=== PATIENT | female | born 1980 | race Two or more races ===

== ENCOUNTER 2020-10-05 08:52 | Outpatient (CLI) | payer OTHER | END 2020-10-05 23:59 | disposition home or self-care (01) | LOC: LAB 08:52 | PROVIDERS: ATTEND Specialist | DX: Z01.812 Encounter for preprocedural laboratory examination (principal); Z20.822 Contact with and (suspected) exposure to COVID-19 | CPT/HCPCS: C9803; U0003 ==

== ENCOUNTER 2020-10-10 05:33 | Day surgery (SDC) | payer OTHER ==
[~2020-10-10 05:33] MED LIST: ANESTHESIA TRAY IN PYXIS 1 EA TRAY MC ONE
[2020-10-10] MEDS ORDERED: methylPREDNISolone ACETATE 80 MG/ML VIAL ONE (05:42)
[2020-10-10] MEDS ORDERED: BUPIVACAINE 0.5 % PF 150 MG/30 ML VIAL ONE (05:42)
[2020-10-10] MEDS ORDERED: FENTANYL PF 100MCG/2ML AMPUL ONE ×2 (06:20→08:18)
[2020-10-10] MEDS ORDERED: SUCCINYLCHOLINE CHLORIDE 20 MG/ML VIAL ONE (06:20)
[2020-10-10] MEDS ORDERED: ROCURONIUM BROMIDE 50 MG/5 ML ONE (06:20)
[2020-10-10] MEDS ORDERED: MIDAZOLAM HCL 2 MG/2ML VIAL ONE (06:20)
== END 2020-10-10 09:50 | disposition home or self-care (01) ==
LOC: DS 05:33
PROVIDERS: ATTEND Specialist
DX: S83.242A Other tear of medial meniscus, current injury, left knee, initial encounter (principal); S83.512A Sprain of anterior cruciate ligament of left knee, initial encounter; X58.XXXA Exposure to other specified factors, initial encounter; Y93.89 Activity, other specified; Y92.89 Other specified places as the place of occurrence of the external cause; Y99.8 Other external cause status
CPT/HCPCS: 29881; 29888; 36415; 84703; 86850; A4217; C1713 ×2; J0330; J0690; J1100; J1885; J2250; J2405; J2704; J3010 ×2; J3490; L1830; J1040